=== PATIENT | female | born 1985 | race Caucasian/White ===

== ENCOUNTER 2016-11-22 14:56 | Emergency (ER) | payer OTHER ==
[2016-11-22 15:02] VITALS: BP 134/83; PULSE 78; TEMP 98.7; BMI 33.4
--- NOTE | 2016-11-22 16:00 | PDOC ---
History of Present Illness - General Chief Complaint: Headache Stated Complaint: HEADACHE/SWELLING LEFT FACE AND LEG Time Seen by Provider: 11/22/16 15:47 History Source: Patient Exam Limitations: No Limitations - History of Present Illness Initial Comments: CHIEF COMPLAINT: HISTORY OF PRESENT ILLNESS: Vital signs on arrival are within normal limits. REVIEW OF SYSTEMS: GENERAL/CONSTITUTIONAL: Subjective fever/chills. No weakness. No weight change. HEAD, EYES, EARS, NOSE AND THROAT: No change in vision. No ear pain or discharge. No sore throat. CARDIOVASCULAR: No chest pain or shortness of breath. RESPIRATORY: No cough, wheezing, or hemoptysis. GASTROINTESTINAL: See history of present illness. GENITOURINARY: No dysuria, frequency, or change in urination. MUSCULOSKELETAL: No joint or muscle swelling or pain. No neck or back pain. SKIN: No rash or easy bruising. NEUROLOGIC: No headache, vertigo, loss of consciousness, or loss of sensation. PHYSICAL EXAM: GENERAL: The patient is awake, alert, and fully oriented, in no acute distress. HEAD: Normal with no signs of trauma. ENT: Pupils equal, round and reactive to light, extraocular movements intact, sclera anicteric, conjunctiva clear. Neck supple. LUNGS: Clear to auscultation bilaterally. Normal excursion. No respiratory distress or use of accessory muscles. CV: RRR, S1/S2, no MRG. Cap refill < 2 sec. ABDOMEN: Soft, non-distended, non-tender even to deep palpation, no hepatomegaly or splenomegaly, no masses. EXTREMITIES: Normal range of motion, no edema. NEUROLOGICAL: Normal speech, normal gait. CN II-XII grossly intact. PSYCH: Normal mood, normal affect. SKIN: Warm, dry, normal turgor, no rashes or lesions noted. Past History - Past Medical History Allergies/Adverse Reactions: Allergies Allergy/AdvReac Type Severity Reaction Status Date / Time No Known Drug Allergies Allergy Verified 11/22/16 14:58 Home Medications: Ambulatory Orders Acetaminophen [Tylenol .Regular Strength -] 325 mg PO Q3H PRN #2 tablet Benzocaine Ointment [Americaine Ointment -] 1 applic TP PRN PRN #1 tube Benzocaine [Americaine 20% [place] -] 1 spray TP PRN PRN #1 spraybtl 06/29/13 Ferrous Sulfate [Feosol] 325 mg PO BID #1 ud 06/29/13 Vitamins (Sjr) - 1 tab PO DAILY #1 tablet 06/29/13 Witch Megan 50% (Tucks) [Tucks Pads -] 1 pad TP PRN PRN #1 pad 06/29/13 Asthma: No Cancer: No Cardiac Disorders: No Diabetes: No HTN: No Seizures: No Thyroid Disease: No Other medical history: DENIES. - Psycho/Social/Smoking Cessation Hx Anxiety: No Suicidal Ideation: No Smoking History: Never smoked Hx Alcohol Use: No Drug/Substance Use Hx: No Substance Use Type: None Hx Substance Use Treatment: No *Physical Exam - Vital Signs Last Vital Signs Temp Pulse Resp BP Pulse Ox 98.7 F 78 18 134/83 98 11/22/16 14:58 11/22/16 14:58 11/22/16 14:58 11/22/16 14:58 11/22/16 14:58
--- NOTE | 2016-11-22 16:11 | PDOC ---
History of Present Illness - General Chief Complaint: Headache Stated Complaint: HEADACHE/SWELLING LEFT FACE AND LEG Time Seen by Provider: 11/22/16 15:47 History Source: Patient, Spouse Exam Limitations: No Limitations - History of Present Illness Initial Comments: 11/22/16 18:30 CHIEF COMPLAINT: "I feel tingling and numbness." HISTORY OF PRESENT ILLNESS: 31-year-old female with no significant past medical history presents to the ED complaining of symptoms today of sensation of tingling in her scalp, face, and left leg. She also had a sensation of some left-sided chest discomfort. She states she's been having some difficulty sleeping soundly in recent days. She feels somewhat stressed, but she denies depression or suicidal thoughts. She denies prior psychiatric history. She denies shortness of breath, fever, cough, or difficulty with exercise. After coming to the ED, she feels better. The tingling, and numbness sensation have now resolved. Patient states she feels well. There was no change in speech or swallowing. There was no change in ambulation. There was no focal weakness. REVIEW OF SYSTEMS: GENERAL/CONSTITUTIONAL: No fever or chills. No weakness. No weight change. HEAD, EYES, EARS, NOSE AND THROAT: No change in vision. No ear pain or discharge. No sore throat. CARDIOVASCULAR: No chest pain or shortness of breath. RESPIRATORY: No cough, wheezing, or hemoptysis. GASTROINTESTINAL: No nausea, vomiting, diarrhea or constipation. No rectal bleeding. GENITOURINARY: No dysuria, frequency, or change in urination. MUSCULOSKELETAL: No joint or muscle swelling or pain. No neck or back pain. SKIN AND BREASTS: No rash or easy bruising. NEUROLOGIC: No headache, vertigo, loss of consciousness, or loss of light touch sensation. Positive tingling sensation in the left face and the left lower leg. Now resolved. PSYCHIATRIC: No depression or anxiety. Positive for some difficulty maintaining sleep with some life stressors. No suicidal or homicidal thoughts. No prior psychiatric history. ENDOCRINE: No increased thirst. No abnormal weight change. HEMATOLOGIC/LYMPHATIC: No anemia, easy bleeding, or history of blood clots. ALLERGIC/IMMUNOLOGIC: No hives or skin allergy. No latex allergy. Past History - Past Medical History Allergies/Adverse Reactions: Allergies Allergy/AdvReac Type Severity Reaction Status Date / Time No Known Drug Allergies Allergy Verified 11/22/16 14:58 Home Medications: Ambulatory Orders Acetaminophen [Tylenol .Regular Strength -] 325 mg PO Q3H PRN #2 tablet Benzocaine Ointment [Americaine Ointment -] 1 applic TP PRN PRN #1 tube Benzocaine [Americaine 20% [place] -] 1 spray TP PRN PRN #1 spraybtl 06/29/13 Ferrous Sulfate [Feosol] 325 mg PO BID #1 ud 06/29/13 Vitamins (Sjr) - 1 tab PO DAILY #1 tablet 06/29/13 Witch Megan 50% (Tucks) [Tucks Pads -] 1 pad TP PRN PRN #1 pad 06/29/13 Asthma: No Cancer: No Cardiac Disorders: No Diabetes: No HTN: No Seizures: No Thyroid Disease: No Other medical history: DENIES. - Psycho/Social/Smoking Cessation Hx Anxiety: No Suicidal Ideation: No Smoking History: Never smoked Hx Alcohol Use: No Drug/Substance Use Hx: No Substance Use Type: None Hx Substance Use Treatment: No *Physical Exam - Vital Signs Last Vital Signs Temp Pulse Resp BP Pulse Ox 98.7 F 78 18 134/83 98 11/22/16 14:58 11/22/16 14:58 11/22/16 14:58 11/22/16 14:58 11/22/16 14:58 - Physical Exam Comments: 11/22/16 18:42 GENERAL: The patient is awake, alert, and fully oriented, in no acute distress. HEAD: Normal with no signs of trauma. EYES: Pupils equal, round and reactive to light, extraocular movements intact, sclera anicteric, conjunctiva clear. ENT: Ears normal, nares patent, oropharynx clear without exudates. Moist mucous membranes. NECK: Normal range of motion, supple without lymphadenopathy, JVD, or masses. LUNGS: Breath sounds equal, clear to auscultation bilaterally. No wheezes, and no crackles. HEART: Regular rate and rhythm, normal S1 and S2 without murmur, rub or gallop. ABDOMEN: Soft, nontender, normoactive bowel sounds. No guarding, no rebound. No masses. EXTREMITIES: Normal range of motion, no edema. No clubbing or cyanosis. No cords, erythema, or tenderness. NEURO: Mental status: The patient is oriented x3. Cranial nerves: Cranial nerves II through XII are intact. No nystagmus. No facial numbness. Motor: The upper extremities are 5 over 5 in all muscle groups. The lower extremities are 5 over 5 in all muscle groups. No pronator drift. Sensation: Sensation is intact to light touch throughout. Cerebellar: Remnpn-[id number] is normal in both upper extremities. Heel-knee- arreguin is normal in both lower extremities. Normal Romberg. Normal rapid alternating movements. Reflexes: 2+ and symmetric in the upper and lower extremities. Gait: Normal. Heel and toe walking are normal. Tandem gait is normal. PSYCH: Normal mood, normal affect. SKIN: Warm, Dry, normal turgor, no rashes or lesions noted. Medical Decision Making - Medical Decision Making 11/22/16 20:24 Patient presents with nonspecific symptoms of tingling and numbness. She also complains of stress and some symptoms of poor sleep. My overall impression based on her detailed neurological examination which is normal, as well as her physical examination which is normal, is probable anxiety and stress. I did recommend to her that she have an EKG and some lab work done prior to discharge. However, after I explained this to her she walked out of the ED without waiting for testing. *DC/Admit/Observation/Transfer Diagnosis at time of Disposition: Paresthesia - Discharge Dispostion Disposition: ELOPED Condition at time of disposition: Stable Admit: No
[2016-11-23 00:18] LABS: BASOPHIL 0.5 % (0-2.0); EOSINOPHIL 1.3 % (0-4.5); MCH 32.6 pg (25.7-33.7); MCHC 33.5 g/dl (32.0-36.0); MEAN CELL VOLUME 97.2 fl (80-96); MEAN PLT VOLUME 8.9 fl (7.5-11.1); NEUTROPHILS 44.1 % (42.8-82.8); PLATELET COUNT 227 K/MM3 (134-434); WHITE BLOOD COUNT 8.6 K/mm3 (4.0-10.0)
[2016-11-23 00:45] LABS: ALBUMIN 4.3 g/dl (3.4-5.0); ALK PHOS 59 U/L (45-117); ANION GAP 12 (8-16); BILIRUBIN,TOTAL 0.3 mg/dL (0.2-1.0); CALCIUM 9.3 mg/dL (8.5-10.1); CO2 29 mmol/L (21-32); CREATININE 0.7 mg/dL (0.55-1.02); GLUCOSE,RANDOM 100 mg/dL (74-106); SGOT/AST 13 U/L (15-37); SGPT/ALT 25 U/L (12-78); TOT PROT 7.8 g/dl (6.4-8.2)
--- NOTE | 2016-11-23 02:18 | PDOC ---
*Physical Exam - Vital Signs Last Vital Signs Temp Pulse Resp BP Pulse Ox 98.7 F 78 18 134/83 98 11/22/16 14:58 11/22/16 14:58 11/22/16 14:58 11/22/16 14:58 11/22/16 14:58 ED Treatment Course - LABORATORY CBC & Chemistry Diagram: 11/22/16 23:57 11/22/16 23:57 - ADDITIONAL ORDERS Additional order review: Laboratory Results 11/22/16 23:57 Sodium 145 Potassium 3.8 Chloride 104 Carbon Dioxide 29 D Anion Gap 12 BUN 15 D Creatinine 0.7 D Creat Clearance w eGFR > 60 Random Glucose 100 Calcium 9.3 Total Bilirubin 0.3 AST 13 L ALT 25 Alkaline Phosphatase 59 Total Protein 7.8 Albumin 4.3 11/22/16 23:57 RBC 4.24 MCV 97.2 H MCHC 33.5 RDW 13.0 D MPV 8.9 D Neutrophils % 44.1 D Lymphocytes % 46.9 H D Monocytes % 7.2 Eosinophils % 1.3 Basophils % 0.5 Medical Decision Making - Medical Decision Making 11/23/16 02:28 Pt admits that she has anxiety; she worries about her kids; she cannot sleep at night. She lives with her and her sister and her sisterin law and they are all supportive. Pt has been advised that her exam and her labs are normal. I will not medicate her with anxiolytiics, as she is caring for her 3 yo daughter and I dont want her to get somnolent. Pt was told to follow with psychiatry, and to exercise. *DC/Admit/Observation/Transfer Diagnosis at time of Disposition: Paresthesia, Tingling - Discharge Dispostion Disposition: HOME Condition at time of disposition: Stable Admit: No - Referrals Referrals: Aquiles Naik MD [Staff Physician] - Juhi Diallo MD [Staff Physician] - Amanuel Shah MD [Staff Physician] - Asha Peña MD [Staff Physician] - - Patient Instructions Printed Discharge Instructions: DI for Numbness/tingling - Post Discharge Activity Work/School Note: Back to Work
--- NOTE | 2016-11-23 23:25 | EKG ---
Test Reason : Blood Pressure : / mmHG Vent. Rate : 062 BPM Atrial Rate : 062 BPM P-R Int : 218 ms QRS Dur : 106 ms QT Int : 404 ms P-R-T Axes : 016 004 020 degrees QTc Int : 410 ms SINUS RHYTHM WITH 1ST DEGREE A-V BLOCK OTHERWISE NORMAL ECG WHEN COMPARED WITH ECG OF 02-FEB-2011 09:29, SD INTERVAL HAS INCREASED VENT. RATE HAS DECREASED BY 31 BPM Confirmed by CANELO FREDERICK, AFSHAN ([id number]) on 11/23/2016 11:24:57 PM Referred By: Confirmed By:AFSHAN LEMOS MD
== END 2016-11-23 02:36 | disposition home or self-care (01) ==
LOC: JER 14:56
DX: R20.8 Other disturbances of skin sensation (principal); F41.8 Other specified anxiety disorders
CPT/HCPCS: 36415; 80053; 85025; 93005; 93010; 99283-25

== ENCOUNTER 2018-08-25 | Inpatient (IN) | payer OTHER ==
--- NOTE | 2018-08-25 00:54 | HP ---
Past Medical History - Admission Chief Complaint: contractions History of Present Illness: 33yo EDC 08/27/18 by 9 week u/s SIUP at 39.5 weeks presents with c/o ctx, no lof, no vaginal bleeding. PNC at [address] Pt Rh+/RI/hep b negative/ HIV negative/GBS negative/Quantiferon positve. Pt in active labor. 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: Alzheimer's, CVA, Dementia, Migraine, Multiple Sclerosis, Peripheral Neuropathy, Parkinson's, Seizure, Syncope, TIA, Vertigo, Other Cardiovascular: No: AFIB, Aneurysm, Aortic Insufficiency, Aortic Stenosis, CAD, CHF, Deep Vein Thrombosis, HTN, Hyperlipdemia, ME, Mitral Insufficiency, Mitral Stenosis, Murmur, Pulmonary Hypertension, Other Pulmonary: No: Asthma, Bronchitis, Cancer, COPD, O2 Dependent, Pneumonia, Previously Intubated, Pulmonary Embolus, Pulmonary Fibrosis, Sleep Apnea, Other Gastrointestinal: No: Ascites, Cancer, Constipation, Crohn's Disease, Diverticulitis, Diverticulosis, Esophageal Varices, Gastritis, GERD, GI Bleed, Hemorrhoids, Hiatal Hernia, Inflamatory Bowel Disease, Irritable Bowel Disease, Pancreatitis, Peptic Ulcer Disease, Ulcerative Colitis, Other Hepatobiliary: No: Cirrhosis, Cholelithiasis, Cholecystitis, Choledocholithiasis , Hepatitis A, Hepatitis B, Hepatitis C, Other Renal/: No: Renal Failure, Renal Inusuff, BPH, Cancer, Hematuria, Hemodialysis , Neurogenic Bladder, Renal Calculi, UTI, Other ...: 3 ...Para: 2 ...Term: 2 ...: 0 ...Spon : 0 ...Induced : 0 ...Multiple Gestation: 0 ...EDC by Sono: 08/27/18 Heme/Onc: No: Anemia, B12 Deficiency, Bleeding Disorder, Cancer, Current Chemotherapy, Current Radiation Therapy, Hemochromatosis, Hypercoaguable State, Myeloproliferative Synd, Sickle Cell Disease, Sickle Cell Trait, Thrombocytopenia, Other Infectious Disease: No: AIDS, C-Diff, Herpes Zoster, HIV, MRSA, STD's, Tuberculosis, VREF, Other Psych: No: Addictions, Anxiety, Bipolar, Depression, Panic, Psychosis, Schizophrenia, Other Musculoskeletal: No: Bursitis, Chronic low back pain, Hemiparesis, Hemiplegia, Osteoarthritis, Paraplegia, Other Rheumatology: No: Fibromyalgia, Gout, Lupus, Rheumatoid Arthritis, Sarcoidosis, Vasculitis, Other ENT: No: Allergic Rhinitis, Sinusitis, Other Endocrine: No: Worth's Disease, [place]'s Disease, Diabetes Insipidus, Diabetes Mellitus, Hyperparathyroidism, Hyperthyroidism, Hypothyroidism, Osteopenia, SIADH, Other - Past Surgical History Past Surgical History: Yes: None Hx Myomectomy: No Hx Transabdominal Cerclage: No - Smoking History Smoking history: Never smoked - Alcohol/Substance Use Hx Alcohol Use: No History of Substance Use: reports: None Home Medications - Allergies Allergies/Adverse Reactions: Allergies Allergy/AdvReac Type Severity Reaction Status Date / Time No Known Drug Allergies Allergy Verified 11/22/16 14:58 - Home Medications Home Medications: Ambulatory Orders Unobtainable 11/22/16 Family Disease History - Family Disease History Family History: Unremarkable Review of Systems - Review of Systems Constitutional: reports: No Symptoms Eyes: reports: No Symptoms HENT: reports: No Symptoms Neck: reports: No Symptoms Cardiovascular: reports: No Symptoms Respiratory: reports: No Symptoms Gastrointestinal: reports: No Symptoms Genitourinary: reports: Pain Breasts: reports: No Symptoms Reported Musculoskeletal: reports: No Symptoms Integumentary: reports: No Symptoms Neurological: reports: No Symptoms Endocrine: reports: No Symptoms Hematology/Lymphatic: reports: No Symptoms Psychiatric: reports: No Symptoms Physical Exam - Maternity Constitutional: Yes: Well Nourished, No Distress, Calm Eyes: Yes: WNL, Conjunctiva Clear, EOM Intact HENT: Yes: WNL, Atraumatic, Normocephalic Neck: Yes: WNL, Supple, Trachea Midline Cardiovascular: Yes: WNL, Regular Rate and Rhythm Breast(s): Yes: WNL - Abdominal Exam/OB Fundal Height: 38 Number of Fetuses: Single Presentation: Vertex Contractions: Yes Regularity: Regular Intensity: Mod/Strong Monitor Mode: External Heart Rate (range): 145 Category: I Accelerations: Uniform - Vaginal Exam/OB Vaginal Bleediing: No Speculum Exam: No Dilatation (cm): 7 Effacement (%): 90 Amniotic Membrane Status: Bulging Presentation: Vertex/Position - Physical Exam Musculoskeletal: Yes: WNL Extremities: Yes: WNL Edema: No Integumentary: Yes: WNL ...Motor Strength: WNL Psychiatric: Yes: WNL Hemorrhage Risk Assessment - Risk Factors Medium Risk Factors: Yes: None High Risk Factors: Yes: None Risk Score: 1 Risk Level: Medium Risk Problem List - Problems (1) Labor and delivery indication for care or intervention Assessment/Plan: 33yo at 339.5 weeks in active labor admit to labor and delivery gbs negative pain management as needed expectant management anticipate Dr. Xie Code(s): O75.9 - COMPLICATION OF LABOR AND DELIVERY, UNSPECIFIED
--- NOTE | 2018-08-25 00:55 | DS ---
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: Yes: Well Nourished, No Distress, Calm Eyes: Yes: WNL, Conjunctiva Clear, EOM Intact HENT: Yes: WNL, Atraumatic, Normocephalic Neck: Yes: WNL, Supple, Trachea Midline Cardiovascular: Yes: WNL, Regular Rate and Rhythm Respiratory: Yes: WNL, Regular, CTA Bilaterally Gastrointestinal: Yes: WNL ...Rectal Exam: Yes: WNL Renal/: Yes: WNL Breast(s): Yes: WNL Musculoskeletal: Yes: WNL Extremities: Yes: WNL Integumentary: Yes: WNL Neurological: Yes: WNL, Alert, Oriented ...Motor Strength: WNL Psychiatric: Yes: WNL, Alert, Oriented Delivery, Single - 1 Minute Total Score: 9 5 Minutes Total Score: 9 Discharge Summary Reason For Visit: LABOR Current Active Problems Labor and delivery indication for care or intervention (Acute) Condition: Stable - Instructions Diet, Activity, Other Instructions: regular diet, no intercourse , [facility], if fever, gheavy vaginal bleeding call MD Disposition: HOME - Home Medications Comprehensive Discharge Medication List: Ambulatory Orders Unobtainable 11/22/16
[2018-08-25] MEDS ORDERED: PROMETHAZINE HCL 25 MG/1 ML VIAL IVPB ONE (01:00)
[2018-08-25] MEDS ORDERED: BUTORPHANOL TARTRATE 1 MG/ML VIAL IVPB ONE (01:00)
[2018-08-25] MEDS ORDERED: ELECTROLYTE-148 SOLN 1,000 ML IV SCH (01:00)
[2018-08-25] MEDS ORDERED: BUTORPHANOL TARTRATE 1 MG/ML VIAL ONE ×2 (01:06)
[2018-08-25] MEDS ORDERED: PROMETHAZINE HCL 25 MG/1 ML VIAL ONE (01:07)
[2018-08-25 01:19] LABS: BASO % 0.3 % (0-2.0); EOS % 0.5 % (0-4.5); HEMATOCRIT 36.5 % (32.4-45.2); HEMOGLOBIN 12.6 GM/dL (10.7-15.3); LYMPH % 22.4 % (8-40); MCH 33.9 pg (25.7-33.7); MCHC 34.5 g/dl (32.0-36.0); MEAN CELL VOLUME 98.2 fl (80-96); MEAN PLT VOLUME 10.8 fl (7.5-11.1); MONO % 7.9 % (3.8-10.2); NEUT % 68.9 % (42.8-82.8); PLATELET COUNT 170 K/MM3 (134-434); RBC 3.72 M/mm3 (3.60-5.2); RDW 13.9 % (11.6-15.6)
[2018-08-25 01:31] LABS: COCAINE, UR NEGATIVE ng/ml (CUTOFF=300); METHADONE, UR NEGATIVE ng/ml (CUTOFF=300); OPIATES, URI NEGATIVE ng/ml (CUTOFF=300); PHENCYCLIDINE,URINE NEGATIVE ng/ml (CUTOFF=25); URINE AMPHETAMINES NEGATIVE ng/ml (CUTOFF=500); URINE BARBITURATES NEGATIVE ng/ml (CUTOFF=200); URINE BENZODIAZEPINES NEGATIVE ng/ml (CUTOFF=200)
[2018-08-25 01:37] VITALS: BMI 37.3
[2018-08-25 01:38] LABS: ANION GAP 10 MMOL/L (8-16); BLOOD UREA NITROGEN 9 mg/dL (7-18); CALCIUM 8.5 mg/dL (8.5-10.1); CHLORIDE 110 mmol/L (98-107); CO2 21 mmol/L (21-32); CREATININE 0.6 mg/dL (0.55-1.3); GLUCOSE,RANDOM 99 mg/dL (74-106); POTASSIUM 3.6 mmol/L (3.5-5.1); SODIUM 141 mmol/L (136-145)
[2018-08-25 01:57] LABS: INR 0.83 (0.83-1.09); PROTHROMBIN TIME (PATIENT) 9.8 SEC (9.7-13.0)
[2018-08-25] MEDS ORDERED: LIDOCAINE HCL 1% PRESERVATIVE FREE - 30ML VIAL ONE (01:59)
[2018-08-25] MEDS ORDERED: OXYTOCIN 20 UNITS in 0.9% NS 20 UNIT/1,000 ML INFUS.BAG IV ONE ×2 (01:59→05:14)
[2018-08-25 02:00] LABS: ACTIVATED PTT 25.5 SECONDS (25.2-36.5)
[2018-08-25] MEDS: OXYTOCIN 20 UNITS in 0.9% NS 20 UNIT/1,000 ML INFUS.BAG IV SCH ×2 (03:50→05:20)
[2018-08-25] MEDS ORDERED: WITCH HAZEL 50% (TUCKS) 40 PAD/JAR PAD TP PRN (04:08)
[2018-08-25] MEDS ORDERED: METHYLERGONOVINE MALEATE 0.2 MG/1 ML AMP IM PRN (04:08)
[2018-08-25] MEDS ORDERED: BENZOCAINE 28 GM HEMORRHOIDAL OINTMENT TP PRN (04:08)
[2018-08-25] MEDS ORDERED: BENZOCAINE 20% 57 GM BOTTLE TP PRN (04:08)
[2018-08-25] MEDS ORDERED: BISACODYL 10 MG SUPP.RECT RC PRN (04:08)
--- NOTE | 2018-08-25 04:12 | PN ---
Delivery - Delivery Vaginal Delivery: No Problems Type of Anesthesia: Local Episiotomy/Laceration: Periurethral Extnsion/lac, 1st degree EBL (cc): 400 Delivery, Single - Stages of Labor Placenta: Yes: Spontaneous, Normal Configuration - Condition of Infant Infant Gender: Male Position: Left, OA - Feeding Plan Initial Plan: Elected not to breastfeed exclusively throughout hospitalization Remarks - Remarks Remarks: Pt fully dilated and pushing delivered viable male from YOGI cephalic presentation over intact perineum. No nuchal cord. Anterior shoulder and body delivered spontaneously and without difficulty. Placenta delivered intact with 3vc. Nose and mouth suctioned with bulb suction. 1st degree perineal and small periclitoral laceration repaired with 2.0 vicryl with excellent hemostasis and scientologist of anatomy. Fundus firm. Vault empty. Mother and baby stable pp. Dr. Xie
[2018-08-25] MEDS ORDERED: IBUPROFEN 600 MG TABLET (FP) PO ONE (04:36)
[2018-08-25] MEDS ORDERED: ACETAMINOPHEN 325 MG TABLET (FP) ONE (04:37)
[2018-08-25] MEDS: IBUPROFEN 600 MG TABLET (FP) PO PRN ×3 (04:40→21:49)
[2018-08-25] MEDS: ACETAMINOPHEN 325 MG TABLET (FP) PO PRN ×3 (04:40→21:48)
[2018-08-25] MEDS: PRENATAL VITAMINS W/ FOLIC ACID TABLET (FP) PO SCH (10:20)
[2018-08-26] MEDS: ACETAMINOPHEN 325 MG TABLET (FP) PO PRN ×2 (06:00→18:03)
[2018-08-26] MEDS: IBUPROFEN 600 MG TABLET (FP) PO PRN ×2 (06:02→18:04)
[2018-08-26 07:29] LABS: BASO % 0.5 % (0-2.0); EOS % 1.7 % (0-4.5); HEMATOCRIT 28.9 % (32.4-45.2); HEMOGLOBIN 9.9 GM/dL (10.7-15.3); LYMPH % 27.3 % (8-40); MCH 33.8 pg (25.7-33.7); MCHC 34.1 g/dl (32.0-36.0); MEAN CELL VOLUME 99.1 fl (80-96); MEAN PLT VOLUME 9.9 fl (7.5-11.1); MONO % 6.4 % (3.8-10.2); NEUT % 64.1 % (42.8-82.8); PLATELET COUNT 134 K/MM3 (134-434); RBC 2.92 M/mm3 (3.60-5.2); RDW 14.1 % (11.6-15.6); WHITE BLOOD COUNT 9.7 K/mm3 (4.0-10.0)
--- NOTE | 2018-08-26 08:12 | PN ---
Post Progress Note Type of Delivery: Vital Signs: Vital Signs Temperature 98.2 F 08/26/18 02:00 Pulse Rate 76 08/26/18 02:00 Respiratory Rate 18 08/26/18 02:00 Blood Pressure 122/76 08/26/18 02:00 O2 Sat by Pulse Oximetry (%) 100 08/25/18 04:45 Uterus: Yes: Fundus Firm Abdomen/GI: Yes: Abdomen soft Lochia: Yes: Rubra Lochia, amount: Small Extremities: Yes: Calves non-tender Activity: Ambulating - Labs Labs: CBC WBC 9.7 K/mm3 (4.0-10.0) 08/26/18 07:00 RBC 2.92 M/mm3 (3.60-5.2) L 08/26/18 07:00 Hgb 9.9 GM/dL (10.7-15.3) L 08/26/18 07:00 Hct 28.9 % (32.4-45.2) L D 08/26/18 07:00 MCV 99.1 fl (80-96) H 08/26/18 07:00 MCH 33.8 pg (25.7-33.7) H 08/26/18 07:00 MCHC 34.1 g/dl (32.0-36.0) 08/26/18 07:00 RDW 14.1 % (11.6-15.6) 08/26/18 07:00 Plt Count 134 K/MM3 (134-434) D 08/26/18 07:00 MPV 9.9 fl (7.5-11.1) 08/26/18 07:00 Absolute Neuts (auto) 6.2 K/mm3 (1.5-8.0) 08/26/18 07:00 Neutrophils % 64.1 % (42.8-82.8) 08/26/18 07:00 Lymphocytes % 27.3 % (8-40) D 08/26/18 07:00 Monocytes % 6.4 % (3.8-10.2) 08/26/18 07:00 Eosinophils % 1.7 % (0-4.5) D 08/26/18 07:00 Basophils % 0.5 % (0-2.0) 08/26/18 07:00 Nucleated RBC % 0 % (0-0) 08/26/18 07:00 Assessment/Plan 33yo s/p , PPD#1 Routine PP care OOB, ambulate Labs reviewed, iron daily Anticipate d/c to home tomorrow Marlon Pimentel MD
[2018-08-26] MEDS: PRENATAL VITAMINS W/ FOLIC ACID TABLET (FP) PO SCH (10:32)
[2018-08-26] MEDS ORDERED: SENNOSIDES/DOCUSATE COMBO (SENNA PLUS) TABLET (UD) PO PRN (22:00)
[2018-08-27] MEDS: ACETAMINOPHEN 325 MG TABLET (FP) PO PRN ×2 (04:38→09:00)
[2018-08-27] MEDS: IBUPROFEN 600 MG TABLET (FP) PO PRN ×2 (04:39→08:59)
--- NOTE | 2018-08-27 07:58 | DS ---
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: Vital Signs Temperature 98 F 08/26/18 22:00 Pulse Rate 73 08/26/18 22:00 Respiratory Rate 18 08/26/18 22:00 Blood Pressure 133/76 08/26/18 22:00 O2 Sat by Pulse Oximetry (%) 100 08/25/18 04:45 Constitutional: Yes: Well Nourished, No Distress, Calm Eyes: Yes: WNL, Conjunctiva Clear, EOM Intact HENT: Yes: WNL, Atraumatic, Normocephalic Neck: Yes: WNL, Supple, Trachea Midline Cardiovascular: Yes: WNL, Regular Rate and Rhythm Respiratory: Yes: WNL, Regular, CTA Bilaterally Gastrointestinal: Yes: WNL ...Rectal Exam: Yes: WNL Renal/: Yes: WNL ....Post : Yes: Uterus firm, Uterus non-tender, Slight lochia rubra Breast(s): Yes: WNL Musculoskeletal: Yes: WNL Extremities: Yes: WNL Edema: No Integumentary: Yes: WNL Neurological: Yes: WNL, Alert, Oriented ...Motor Strength: WNL Psychiatric: Yes: WNL, Alert, Oriented Labs: CBC, BMP 08/26/18 07:00 08/25/18 01:00 Delivery - Delivery Vaginal Delivery: No Problems, Spontaneous Type of Anesthesia: Local Episiotomy/Laceration: Periurethral Extnsion/lac, 1st degree EBL (cc): 400 Delivery, Single - Stages of Labor Date 1st Stage Initiatied: 08/24/18 Time 1st Stage Initiated: 22:00 Date 2nd Stage Initiated: 08/25/18 Time 2nd Stage Initiated: 03:10 Date of Delivery: 08/25/18 Time of Delivery: 03:43 Time Placenta Delivered: 03:50 Placenta: Yes: Spontaneous, Normal Configuration - 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 Gender: Male Weight: 8 lb 6 oz Position: Left, OA Total Hours ROM (Hrs/Mins): 1hr 20min - 1 Minute Total Score: 9 5 Minutes Total Score: 9 - [place] Feeding Plan Initial Plan: Elected not to breastfeed exclusively throughout hospitalization Discharge Summary Reason For Visit: LABOR Current Active Problems Labor and delivery indication for care or intervention (Acute) Procedures: Principal: Condition: Unchanged/Unknown - Instructions Diet, Activity, Other Instructions: regular diet, no intercourse , follow up [facility] care 4 weeks, if fever, gheavy vaginal bleeding call MD - Home Medications Comprehensive Discharge Medication List: Ambulatory Orders Vitamins (Sjr) - 1 tab PO DAILY 08/25/18 Ibuprofen [Motrin -] 600 mg PO QID #28 tablet 08/26/18
[2018-08-27] MEDS: PRENATAL VITAMINS W/ FOLIC ACID TABLET (FP) PO SCH (09:01)
[2018-08-27 15:24] VITALS: BP 132/79; PULSE 83; TEMP 99
== END 2018-08-27 12:20 | disposition home or self-care (01) | DRG 560 ==
LOC: JLDR → J3W 05:30
PROVIDERS: ADMIT Obstetrics & Gynecology; ATTEND Obstetrics & Gynecology
PROC: 10E0XZZ Delivery of Products of Conception, External Approach (ICD-10-PCS; principal; 2018-08-25)
PROC: 0HQ9XZZ Repair Perineum Skin, External Approach (ICD-10-PCS; 2018-08-25)
PROC: 0W8NXZZ Division of Female Perineum, External Approach (ICD-10-PCS; 2018-08-25)
DX: O70.0 First degree perineal laceration during delivery (principal); Z3A.39 39 weeks gestation of pregnancy; Z37.0 Single live birth
CPT/HCPCS: 36415; 59409; 80048; 80307; 85025; 85610; 85730; 86593; 86850; 86900; 86901; 90686; G0008

== ENCOUNTER 2022-12-06 09:51 | Emergency (ER) | payer OTHER ==
[2022-12-06 09:55] VITALS: BP 157/75; PULSE 80; RESP 18; TEMP 98.3; BMI 32.2
[2022-12-06 11:23] LABS: URINE APPEARANCE CLEAR; URINE BILIRUBIN NEGATIVE (NEGATIVE); URINE COLOR YELLOW; URINE GLUCOSE (UA) NEGATIVE (NEGATIVE); URINE KETONE NEGATIVE (NEGATIVE); URINE LEUK ESTERASE NEGATIVE (NEGATIVE); URINE NITRITE NEGATIVE (NEGATIVE); URINE PROTEIN NEGATIVE (NEGATIVE); URINE UROBILINOGEN 0.2 mg/dL (0.2-1.0)
[2022-12-06 11:26] LABS: HCG,QUALITATIVE URINE Negative
[2022-12-06 11:32] LABS: BASO % 0.5 % (0-2.0); EOS % 0.6 % (0-4.5); HEMATOCRIT 40.2 % (32.4-45.2); LYMPH % 35.9 % (8-40); MCH 33.4 pg (25.7-33.7); MCHC 34.9 g/dl (32.0-36.0); MEAN CELL VOLUME 95.8 fl (80-96); MEAN PLT VOLUME 8.9 fl (7.5-11.1); MONO % 5.8 % (3.8-10.2); NEUT % 57.2 % (42.8-82.8); PLATELET COUNT 237 10^3/uL (134-434); RBC 4.19 M/mm3 (3.60-5.2); RDW 13.1 % (11.6-15.6); WHITE BLOOD COUNT 7.8 K/mm3 (4.0-10.0)
[2022-12-06 11:41] LABS: CALCIUM 9.2 mg/dL (8.5-10.1)
[2022-12-06 11:42] LABS: ALBUMIN 4.1 g/dl (3.4-5.0); BLOOD UREA NITROGEN 15.7 mg/dL (7-18)
[2022-12-06 11:45] LABS: CREATININE 0.8 mg/dL (0.55-1.3)
[2022-12-06 11:46] LABS: BILIRUBIN,TOTAL 0.4 mg/dL (0.2-1); TOT PROT 7.6 g/dl (6.4-8.2)
[2022-12-06] MEDS ORDERED: KETOROLAC TROMETHAMINE 30 MG/1 ML VIAL IVPUSH ONE (12:03)
[2022-12-06] MEDS ORDERED: KETOROLAC TROMETHAMINE 30 MG/1 ML VIAL ONE (12:11)
[2022-12-06] MEDS ORDERED: FLUCONAZOLE 150 MG TABLET PO ONE ×2 (12:17→12:18)
== END 2022-12-06 12:19 | disposition home or self-care (01) ==
LOC: JER 09:51
PROC: 3E0333Z Introduction of Anti-inflammatory into Peripheral Vein, Percutaneous Approach (ICD-10-PCS; principal; 2022-12-06)
DX: R10.84 Generalized abdominal pain (principal)
CPT/HCPCS: 36415; 80053; 81003; 83690; 84703; 85025; 87070; 87086; 87205; 99284-25